=== PATIENT | female | born 1995 | race Caucasian/White ===

== ENCOUNTER 2017-09-04 07:00 | Inpatient (IN) | payer OTHER ==
[~2017-09-04] VITALS: Ht 154.9 cm; Wt 74.8 kg
== END 2017-09-07 13:15 | disposition home or self-care (01) | DRG 743 ==
LOC: SURH 07:00 → SURG 09-05 08:03 → O/R 09-05 08:03 → SURH 09-05 11:00 → SURG 09-05 16:30
PROVIDERS: Obstetrics & Gynecology
PROC: 0UB20ZZ Excision of Bilateral Ovaries, Open Approach (ICD-10-PCS; principal; 2017-09-05 11:00)
DX: D27.1 Benign neoplasm of left ovary (principal); N83.291 Other ovarian cyst, right side

== ENCOUNTER 2018-10-12 12:40 | Outpatient (CLI) | payer OTHER | END 2018-10-12 12:49 | disposition home or self-care (01) | LOC: SONOGRAMA 12:40 | DX: N60.11 Diffuse cystic mastopathy of right breast (principal); N60.12 Diffuse cystic mastopathy of left breast; N63.21 Unspecified lump in the left breast, upper outer quadrant ==

== ENCOUNTER 2021-03-26 12:50 | Outpatient (CLI) | payer OTHER | END 2021-03-26 13:07 | disposition home or self-care (01) | LOC: SONOGRAMA 12:50 | PROVIDERS: ATTEND Surgery | DX: D24.2 Benign neoplasm of left breast (principal); N60.11 Diffuse cystic mastopathy of right breast; N60.12 Diffuse cystic mastopathy of left breast ==